=== PATIENT | female | born 1930 | race Caucasian/White ===

== ENCOUNTER 2016-10-23 20:55 | Emergency (ER) | payer MEDICARE ==
[~2016-10-23] VITALS: Ht 165.1 cm; Wt 56.3 kg
[~2016-10-23 20:55] MED LIST: ATEN-102 PO; ATOR40TA49 PO; CEPH500C3 PO; GLIM1TAB PO; INDA1.25 PO; LISI-363 PO; LORA0.5T PO; OMEP20TA PO; POTA20IN3 PO
[2016-10-23 21:02] VITALS: BP 126/70; PULSE 72; RESP 16; TEMP 97.7; O2SAT 96
--- NOTE | 2016-10-23 21:20 | PD ---
HPI Chief Complaint: Complaint Time Seen by Provider: 21:05 Travel History International Travel<30 days: No Contact w/Intl Traveler<30days: No Traveled to known affect area: No History of Present Illness HPI 86-year-old female complaining of burning with urination. She is having frequency and urinating small amounts. She has had urinary tract infections in the past. There has not been any fever or chills. She is not having flank pain. She does have a history of diabetes PFSH Past Medical History High Cholesterol: Yes Diabetes: Yes Diminished Hearing: No GERD: Yes Hypertension: Yes Menopausal: Yes Social History Alcohol Use: No Tobacco Use: No Substance Use: No Allergies-Medications (Allergen,Severity, Reaction): Coded Allergies: No Known Allergies (Verified , 02/07/15) Reported Meds & Prescriptions Reported Meds & Active Scripts Active Reported Lorazepam 0.5 Mg Tab 0.5 Mg PO DAILY PRN Vitamin D (Ergocalciferol) 50,000 Unit Cap 50,000 Units PO Q7D Potassium Chloride ER (Potassium Chloride) 20 Meq Tab 20 Meq PO DAILY Indapamide 1.25 Mg Tab 1.25 Mg PO DAILY Prilosec (Omeprazole) 20 Mg Cap 20 Mg PO DAILY Atorvastatin (Atorvastatin Calcium) 40 Mg Tab 40 Mg PO HS Glimepiride 2 Mg Tab 2 Mg PO DAILY Take with breakfast or first main meal Januvia (Sitagliptin Phosphate) 50 Mg Tab 50 Mg PO DAILY Metformin (Metformin HCl) 1,000 Mg Tab 1,000 Mg PO BIDPC With meals Atenolol 50 Mg Tab 50 Mg PO BID Lisinopril 40 Mg Tab 40 Mg PO DAILY Review of Systems General / Constitutional: No: Fever, Chills Eyes: No: Diploplia, Blurred Vision HENT: No: Vertigo, Lightheadedness Cardiovascular: No: Chest Pain or Discomfort, Palpitations Respiratory: No: Cough Genitourinary: Positive: Frequency, Dysuria Skin: No Rash, No Itching Neurologic: No: Weakness Physical Exam Narrative GENERAL: Well-developed female SKIN: Warm and dry. HEAD: Atraumatic. Normocephalic. EYES: Pupils equal and round. No scleral icterus. No injection or drainage. ENT: No nasal bleeding or discharge. Mucous membranes pink and moist. NECK: Trachea midline. No JVD. CARDIOVASCULAR: Regular rate and rhythm. No murmur appreciated. RESPIRATORY: No accessory muscle use. Clear to auscultation. Breath sounds equal bilaterally. GASTROINTESTINAL: Abdomen soft, non-tender, nondistended. Hepatic and splenic margins not palpable. MUSCULOSKELETAL: No obvious deformities. No clubbing. No cyanosis. No edema. NEUROLOGICAL: Awake and alert. No obvious cranial nerve deficits. Motor grossly within normal limits. Normal speech. PSYCHIATRIC: Appropriate mood and affect; insight and judgment normal. Data Data Last Documented VS Vital Signs Date Time Temp Pulse Resp B/P Pulse Ox O2 Delivery O2 Flow Rate FiO2 10/23/16 21:02 97.7 72 16 126/70 96 Room Air Orders Urinalysis - C+S If Indicated (10/23/16 21:16) Phenazopyridine (Pyridium) (10/23/16 21:30) Sulfamet-Trimeth Ds 800-160 Mg (Bactrim (10/23/16 21:30) Urine Culture (10/23/16 21:20) Labs Laboratory Tests Test 10/23/16 21:20 Urine Color YELLOW Urine Turbidity CLOUDY Urine pH 5.5 Urine Specific [place] 1.022 Urine Protein 300 OR GREATER mg/dL Urine Glucose (UA) NEG mg/dL Urine Ketones TRACE mg/dL Urine Occult Blood MOD Urine Nitrite NEG Urine Bilirubin NEG Urine Leukocyte Esterase MOD Urine RBC 20-24 /hpf Urine WBC INNUM /hpf Urine Squamous Epithelial 6-8 /hpf Cells Urine Bacteria MANY /hpf Microscopic Urinalysis Comment CULTURE INDICATED MDM Medical Decision Making Medical Screen Exam Complete: Yes Emergency Medical Condition: Yes Medical Record Reviewed: Yes Interpretation(s) Laboratory Tests Test 10/23/16 21:20 Urine Color YELLOW Urine Turbidity CLOUDY Urine pH 5.5 Urine Specific [place] 1.022 Urine Protein 300 OR GREATER mg/dL Urine Glucose (UA) NEG mg/dL Urine Ketones TRACE mg/dL Urine Occult Blood MOD Urine Nitrite NEG Urine Bilirubin NEG Urine Leukocyte Esterase MOD Urine RBC 20-24 /hpf Urine WBC INNUM /hpf Urine Squamous Epithelial 6-8 /hpf Cells Urine Bacteria MANY /hpf Microscopic Urinalysis Comment CULTURE INDICATED Differential Diagnosis Differential includes UTI, cystitis, Narrative Course Urine shows innumerable white cells. She'll be treated with Bactrim Diagnosis Primary Impression: Cystitis Scripts Sulfamethoxazole-Trimethoprim (Bactrim DS)800-160 Mg Tab1 Tab PO BID #14 TAB Ref 0 Prov:Yfn Nichols MD 10/23/16 Phenazopyridine (Pyridium)200 Mg [id number] Mg PO Q8HR #10 TAB Ref 0 Prov:Yfn Nichols MD 10/23/16 Disposition: 01 DISCHARGE HOME Condition: Stable Yfn Nichols MD Oct 23, 2016 21:20
[2016-10-23 21:27] LABS: GLUCOSE,URINE NEG (NEG); KETONE, URINE TRACE mg/dL (NEG); NITRITE,URINE NEG (NEG); PH, URINE 5.5 (5.0-8.5)
[2016-10-23 21:28] LABS: BLOOD, URINE MOD (NEG)
[2016-10-23 21:30] LABS: URINE COLOR YELLOW (YELLW/STRAW)
[2016-10-23] MEDS ORDERED: PHENAZOPYRIDINE HCL 200 MG TAB PO ONE (21:30)
[2016-10-23] MEDS ORDERED: SULFAMETHOXAZOLE-TRIMETHOPRIM DS 800-160 MG TAB PO ONE (21:30)
[2016-10-23 21:32] LABS: BACTERIA, URINE MANY /hpf; WBC, URINE INNUM /hpf (0-5)
[2016-10-23 21:33] LABS: COMMENT (UR) CULTURE INDICATED; CULTURE IF INDICATED CULTURE INDICATED
[2016-10-23] MEDS ORDERED: LISI40TA PO (21:35)
[2016-10-23] MEDS ORDERED: GLIM2TAB PO (21:35)
[2016-10-23] MEDS ORDERED: PRIL20CA9 PO (21:35)
[2016-10-23] MEDS ORDERED: METF1000 PO (21:35)
[2016-10-23] MEDS ORDERED: POTA-163 PO (21:35)
[2016-10-23] MEDS ORDERED: ERGO1CAP10 PO (21:35)
[2016-10-23] MEDS ORDERED: INDA1.25 PO (21:35)
[2016-10-23] MEDS ORDERED: ATOR40TA16 PO (21:35)
[2016-10-23] MEDS ORDERED: LORA-373 PO (21:35)
[2016-10-23] MEDS ORDERED: SITA50 PO (21:35)
[2016-10-23] MEDS ORDERED: ATEN50TA PO (21:35)
[2016-10-23] MEDS ORDERED: BACT800T5 PO (21:41)
[2016-10-23] MEDS ORDERED: PYRI200T4 PO (21:41)
[2016-10-23 21:57] VITALS: BP 130/62; TEMP 98.1
[2017-02-06] MEDS ORDERED: LORA-373 PO (11:04)
[2017-02-06] MEDS ORDERED: DIFL150T PO (11:04)
[2017-02-27] MEDS ORDERED: MACR100C2 PO (10:55)
[2017-03-24] MEDS ORDERED: AMLO10TA2 PO (13:51)
[2017-03-24] MEDS ORDERED: GLIM2TAB PO (13:51)
[2017-03-24] MEDS ORDERED: METF1000 PO (13:51)
== END 2016-10-23 22:00 | disposition home or self-care (01) ==
LOC: PHED 20:55
DX: N30.90 Cystitis, unspecified without hematuria (principal); R35.0 Frequency of micturition; B96.1 Klebsiella pneumoniae [K. pneumoniae] as the cause of diseases classified elsewhere; E78.00 Pure hypercholesterolemia, unspecified; E11.9 Type 2 diabetes mellitus without complications; I10 Essential (primary) hypertension
CPT/HCPCS: 81001; 87077; 87086; 87186; 99283

== ENCOUNTER → 2017-02-23 | Outpatient (CLI) | payer MEDICARE ==
[~2017-02-23] MED LIST changes: +AMLO10TA2 PO; -ATEN-102 PO; +ATEN50TA PO; +ATOR40TA16 PO; -ATOR40TA49 PO; -CEPH500C3 PO; +DIFL150T PO; +ERGO1CAP10 PO; -GLIM1TAB PO; +GLIM2TAB PO; -LISI-363 PO; +LISI40TA PO; +LORA-373 PO; -LORA0.5T PO; +MACR100C2 PO; +METF1000 PO; -OMEP20TA PO; -POTA20IN3 PO
[2017-02-23 13:16] LABS: BACTERIA, URINE MANY /hpf; BLOOD, URINE NEG (NEG); COMMENT (UR) CULTURE INDICATED; CULTURE IF INDICATED CULTURE INDICATED; GLUCOSE,URINE NEG (NEG); KETONE, URINE NEG (NEG); MUCUS URINE FEW /lpf (OCC); SQUAMOUS EPITHELIAL CELL URINE 2 /hpf (0-5); URINE COLOR YELLOW (YELLW/STRAW)
[2017-02-23 13:17] LABS: AUTOMATED NEUTROPHIL # 3.8 TH/MM3 (1.8-7.7); BASOPHIL % 0.4 % (0.0-2.0); EOSINOPHIL # 0.1 TH/MM3 (0-0.4); EOSINOPHIL % 1.1 % (0.0-4.0); HEMO FLAGS DIFF FINAL; LYMPHOCYTE # 1.6 TH/MM3 (1.0-4.8); MEAN CELL VOLUME 90.3 FL (80.0-100.0); MEAN CORPUSCULAR HEMOGLOBIN 32.2 PG (27.0-34.0); MEAN CORPUSCULAR HGB CONC 35.7 % (32.0-36.0); MONO % 9.4 % (0.0-8.0); NEUT % 63.1 % (16.0-70.0); PLATELET COUNT 167 TH/MM3 (150-450); RED BLOOD COUNT 4.21 MIL/MM3 (4.00-5.30); RED CELL DISTRIBUTION WIDTH 12.9 % (11.6-17.2)
[2017-02-23 13:17] LABS: NITRITE,URINE POS (NEG)
[2017-02-23 13:43] LABS: ALT (GPT) 27 U/L (10-53); ANION GAP 10 MEQ/L (5-15); AST (GOT) 26 U/L (15-37); BICARBONATE 30.1 MEQ/L (21.0-32.0); BLOOD UREA NITROGEN 20 MG/DL (7-18); CHLORIDE 100 MEQ/L (98-107); GLOMERULAR FILTRATION RATE 54 ML/MIN (>89); GLUCOSE,FASTING 187 MG/DL (74-99); POTASSIUM 3.5 MEQ/L (3.5-5.1); SODIUM (NA) 140 MEQ/L (136-145)
[2017-02-23 13:46] LABS: MICRO ALBUMIN RANDOM URINE RAW 79.3 MG/L (0.0-30.0)
[2017-02-23 13:52] LABS: ALKALINE PHOSPHATASE 80 U/L (45-117); HDL CHOLESTEROL 77.2 MG/DL (40.0-60.0); LDL CHOLESTEROL 107 MG/DL (0-99); TOTAL BILIRUBIN ADULT 0.9 MG/DL (0.2-1.0)
== END ==
LOC: PLAB 10:10
PROVIDERS: ATTEND Family Medicine
DX: E11.9 Type 2 diabetes mellitus without complications (principal); I10 Essential (primary) hypertension; N94.9 Unspecified condition associated with female genital organs and menstrual cycle; N30.90 Cystitis, unspecified without hematuria; E55.9 Vitamin D deficiency, unspecified; B96.20 Unspecified Escherichia coli [E. coli] as the cause of diseases classified elsewhere; F41.9 Anxiety disorder, unspecified; Z87.440 Personal history of urinary (tract) infections
CPT/HCPCS: 36415; 80053; 80061; 81001; 82043; 82306; 84443; 85025; 87077; 87086; 87186